=== PATIENT | male | born 2000 | race Two or more races ===

== ENCOUNTER 2022-12-10 15:32 | Emergency (ER) | payer OTHER, SELFPAY ==
--- NOTE | ~2022-12-10 | XR_ITS ---
XR hand LT min 3V DATE: 12/10/2022 16:50 INDICATION: Laceration to distal third digit. Pain. TECHNIQUE: 3 views of left hand COMPARISON: None FINDINGS: There is a soft tissue laceration at the tip of the distal phalanx just distal to the tuft. No radiopaque soft tissue foreign body is noted. No fracture or dislocation, periosteal reaction or bone destruction, erosive change or chondrocalcino sis is detected. IMPRESSION: Distal third digit soft tissue laceration; no radiopaque foreign body or fracture or disl ocation Reviewed, dictated and finalized at location A. IMPRESSION: Distal third digit soft tissue laceration; no radiopaque foreign luisito dy or fracture or dislocation
[2022-12-10 15:56] VITALS: BP 131/73; PULSE 60; RESP 18; TEMP 36.8; O2SAT 100
--- NOTE | 2022-12-10 20:14 | ED.WOUNDLAC ---
HPI - Wound/Laceration General Chief Complaint: Wound/Laceration Stated Complaint: finger laceration Time Seen by Provider: 12/10/22 19:02 Source: patient Mode of arrival: ambulatory Limitations: no limitations History of Present Illness HPI narrative: Patient is a 22-year-old male who presents to the ED with report of a laceration to his left third digit. Patient reports he was chopping onions today when the knife slipped and he sustained a laceration to the distal tip of his left third digit. Denies any other injuries. Denies numbness or tingling. Tetanus unknown. He recently moved to [place] from [place]. Related Data Allergies Allergy/AdvReac Type Severity Reaction Status Date / Time No Known Allergies Allergy Verified 12/10/22 15:33 Review of Systems Review of Systems: CONSTITUTIONAL: Denies fever, chills, or sweats. SKIN: See HPI. MUSCULOSKELETAL: See HPI. NEUROLOGIC: Denies tingling, numbness, or weakness. All systems reviewed & are unremarkable except as noted in HPI and below Exam Narrative: GENERAL: Well appearing, well-nourished, non-toxic, in no acute distress. HEAD: Normocephalic, atraumatic. NECK: Supple. No adenopathy, no masses. RESPIRATORY: Airway patent, respirations nonlabored. CARDIOVASCULAR: Regular rate and rhythm without murmurs, rubs, or gallops. Radial pulses 2+ and equal bilaterally. MUSCULOSKELETAL: Moves all extremities. Strength/ROM intact without gross deformities. SKIN: Warm, dry, normal color. No rashes. 1 cm linear laceration through distal fingertip pad of left third digit extending just slightly into distal edge of nail plate. Cuticle intact. Sensation intact. Good capillary refill. NEURO: A&O X3. Speech clear. Cranial nerves II-XII grossly intact. Steady gait. No ataxic movements. PSYCHIATRIC: Appropriate mood and affect. Normal interaction. Course Vital Signs Vital signs: Vital Signs Temperature 98.2 F 12/10/22 15:56 Pulse Rate 60 12/10/22 15:56 Respiratory Rate 18 12/10/22 15:56 Blood Pressure 131/73 12/10/22 15:56 Pulse Oximetry 100 12/10/22 15:56 Oxygen Delivery Room Air 12/10/22 15:56 Temperature 98.2 F 12/10/22 15:56 Pulse Rate 60 12/10/22 15:56 Respiratory Rate 18 12/10/22 15:56 Blood Pressure 131/73 12/10/22 15:56 Pulse Oximetry 100 12/10/22 15:56 Oxygen Delivery Room Air 12/10/22 15:56 Procedures Laceration Laceration 1: Date: 12/10/22 Time: 20:50 Site: hand (3rd digit) Side (If applicable): left Size (cm): 1 Description: linear Depth: simple, single layer Local Anesthetic: lidocaine 1% Amount of anesthesia used (mL): 4 Pre-repair: wound explored and irrigated ====== Skin Level ====== Skin layer closed with: nylon Size (cm): 4-0 Number of sutures: 4 Technique: simple, interrupted ====== Subcutaneous Layer ====== ====== Muscle Layer ====== ====== Tendon Layer ====== MDM - Wound/Laceration MDM Narrative Medical decision making narrative: Patient presented to ED with laceration to left second digit. X-ray without foreign body or fracture. Laceration repaired without complications. Tetanus updated. Patient given wound care instructions and reasons to return. Discharged in stable condition. I did accidentally sustain a needlestick injury from a needle that was used to inject lidocaine in the patient's laceration. Incident report was filed. Patient consented to have his blood drawn. Needlestick protocol initiated. Patient was negative for hepatitis B and C, HIV. Medical Records Attestation: I reviewed the patient's medical records. Lab Data Attestation: I reviewed the patient's lab results. Labs: Lab Results 12/10/22 Range/Units 21:11 Hep Bs Antigen Negative (Negative) Hepatitis C Ab Screen Negative (Negative) HIV 1&2 Ab/P24 Ag 4thGn Negative (Negative)
[2022-12-10] MEDS: TETANUS,DIPHTHERIA,AC PERTUSSIS ADULT (0.5 ML) BOOSTRIX (21:06)
[2022-12-10] MEDS: LIDOCAINE HCL 1% LOCAL INJ 10 ML VIAL (21:07)
[2022-12-10 21:58] LABS: Hepatitis B Surface Antigen Negative (Negative)
[2022-12-10 22:15] LABS: HIV 1/2 Ab P24 Ag Result Negative (Negative); Hepatitis C Virus Antibody Negative (Negative)
== END 2022-12-10 21:53 | disposition home or self-care (01) ==
PROVIDERS: Emergency Provider Physician Assistant
DX: S61.213A Laceration without foreign body of left middle finger without damage to nail, initial encounter (principal); W26.0XXA Contact with knife, initial encounter; Z11.4 Encounter for screening for human immunodeficiency virus [HIV]; Z23 Encounter for immunization
CPT/HCPCS: 12001; 36415; 73130; 86703; 86803; 87340; 90715; 99283; G0432

== ENCOUNTER 2022-12-20 13:26 | Emergency (ER) | payer OTHER, SELFPAY ==
[2022-12-20 13:28] VITALS: BP 121/67; PULSE 61; RESP 14; TEMP 36.5; O2SAT 100
--- NOTE | 2022-12-20 14:01 | ED.GENADULT ---
HPI - General Adult General Chief complaint: Unspecified Stated complaint: stitch removal Time Seen by Provider: 12/20/22 13:37 History of Present Illness HPI narrative: This is a 22-year-old male, seen in this emergency department 10 days ago for laceration, who returns for suture removal. Patient denies significant pain, bleeding, spreading redness or fevers. Related Data Allergies Allergy/AdvReac Type Severity Reaction Status Date / Time No Known Allergies Allergy Verified 12/10/22 15:33 Review of Systems Review of Systems: CONSTITUTIONAL: Denies fever, chills, or sweats. CARDIOVASCULAR: Denies chest pain, palpitations, or edema. RESPIRATORY: Denies cough or dyspnea. MUSCULOSKELETAL: Laceration of the left third finger denies back pain, joint pain, or myalgia. [facility] Past Medical History Medical History (Updated 12/21/22 @ 00:02 by Warren Robert) No significant medical problems Surgical History Surgical History (Updated 12/20/22 @ 14:03 by Carloz Isaac MD) No significant past surgical history Exam Narrative: GENERAL: Well-developed, well-nourished, and in no acute distress. HEAD: Normocephalic, atraumatic. EYES: PERRLA and EOMI. CHEST: Clear to auscultation. No respiratory distress. No wheezes rales or rhonchi HEART: Regular rate and rhythm. No murmur heard. Normal peripheral pulses. EXTREMITIES: Healing laceration measuring approximately 2 cm noted to the ventral aspect of the distal left third digit. [address] and wound is well approximated. There is no noted erythema or induration. Normal range of motion. No edema. NEURO: Alert and oriented x3. Moving all 4 limbs purposefully. PSYCH: Normal mood and affect. Course Course Emergency Course: 14:14 - Sutures removed by me. Please see procedure note. The wound appears to be healing well. Will place patient in splint for protection and recommend outpatient follow-up. Discussed return and emergent precautions including signs/symptoms of neurovascular compromise and wound infection. The patient voiced understanding and is comfortable with the plan. All questions answered to his satisfaction. Vital Signs Vital signs: Vital Signs Temperature 97.7 F 12/20/22 13:28 Pulse Rate 61 12/20/22 13:28 Respiratory Rate 14 12/20/22 13:28 Blood Pressure 121/67 12/20/22 13:28 Pulse Oximetry 100 12/20/22 13:28 Temperature 97.7 F 12/20/22 13:28 Pulse Rate 61 12/20/22 13:28 Respiratory Rate 14 12/20/22 13:28 Blood Pressure 121/67 12/20/22 13:28 Pulse Oximetry 100 12/20/22 13:28 Procedures Other Procedure Procedure 1: Other Procedure: With verbal consent from the patient, 4 sutures removed from the distal aspect of the left third digit. There is small amount of bleeding, however the patient's wound appears to be healing well. There is no evidence of wound infection. The patient tolerated the procedure well. No anesthesia was required. Medical Decision Making MDM Narrative Medical decision making narrative: Plan: Wound evaluation, suture removal, reassess Differential Diagnosis Differential Diagnosis: Laceration, wound infection, other Vital Signs Vital Signs: Vital Signs Temperature 97.7 F 12/20/22 13:28 Pulse Rate 61 12/20/22 13:28 Respiratory Rate 14 12/20/22 13:28 Blood Pressure 121/67 12/20/22 13:28 Pulse Oximetry 100 12/20/22 13:28 Temperature 97.7 F 12/20/22 13:28 Pulse Rate 61 12/20/22 13:28 Respiratory Rate 14 12/20/22 13:28 Blood Pressure 121/67 12/20/22 13:28 Pulse Oximetry 100 12/20/22 13:28 Discharge Plan Discharge Clinical Impression: Encounter for removal of sutures, Laceration of finger of left hand Patient Disposition: Home, Self-Care Condition: Stable Instructions: Antibiotic Form, Laceration (ED) Additional Instructions: You were seen in the emergency department. Your sutures were rem
== END 2022-12-20 14:27 | disposition home or self-care (01) ==
PROVIDERS: Emergency Provider Preventive Medicine Aerospace Medicine
DX: S61.213D Laceration without foreign body of left middle finger without damage to nail, subsequent encounter (principal); X58.XXXD Exposure to other specified factors, subsequent encounter
CPT/HCPCS: 15853; 99282